=== PATIENT | female | born 1955 | race Caucasian/White ===

== ENCOUNTER 2020-01-19 11:24 | Emergency (ER) | payer MEDICARE, OTHER, SELFPAY ==
[2020-01-19 11:38] VITALS: BP 137/75; PULSE 60; RESP 20; TEMP 36.3; O2SAT 100
--- NOTE | 2020-01-19 12:01 | ED.SKABFB ---
HPI - Skin/Abscess/Foreign Bdy General Chief complaint: Skin/Abscess/Foreign Body Stated complaint: itchy rash Time Seen by Provider: 01/19/20 12:01 Source: patient and RN notes reviewed Mode of arrival: ambulatory Limitations: no limitations History of Present Illness HPI narrative: 64 year old female who presents to express care with rash to bilateral forearms, right side of abdomen for several days which is itching and feels like she is now itching all over. Patient states that she has been working in her yard in her [place] and also used oxy-clean to wash house off. Patient has raised circular red rash which is itchy and irritating no drainage noted. Patient states that she has been using anti-itch cream and taking Benadryl for her symptoms. Patient denies any difficulty with her breathing or any difficulty with swallowing. MD complaint: rash Onset (ago): day(s) (several days) Tetanus up to date: unsure Location: chest (right abdomen), LUE and RUE Severity: moderate Severity scale (1-10): 4 Quality: pruritic Pain Consistency: other (itchy and irritating) Relieving factors: topical medication and other (Benadryl) Exacerbating factors: none Context: other (working in [place] and used oxy-clean on house) Associated symptoms: itching Treatments prior to arrival: Benadryl and other (Benadryl and anti itch ointment) Related Data Home Medications Medication Instructions Recorded Confirmed anastrozole 1 mg PO DAILY 01/19/20 01/19/20 calcium carbonate-vitamin D2 1 tablet PO DAILY 01/19/20 01/19/20 [Calcium + Vitamin D] escitalopram oxalate 20 mg PO DAILY 01/19/20 01/19/20 esomeprazole magnesium [Nexium] 40 mg PO DAILY 01/19/20 01/19/20 Allergies Allergy/AdvReac Type Severity Reaction Status Date / Time phenazopyridine AdvReac Dizziness Verified 01/19/20 11:53 [From Pyridium] Review of Systems Review of Systems: Narrative: CONSTITUTIONAL: Denies fever, chills, or sweats. EYES: Denies visual changes, redness, or discharge. ENT: Denies rhinorrhea, congestion, sore throat, or otalgia. CARDIOVASCULAR: Denies chest pain, palpitations, or edema. RESPIRATORY: Denies cough or dyspnea. GASTROINTESTINAL: Denies abdominal pain, nausea, vomiting, or diarrhea. GENITOURINARY: Denies dysuria or hematuria. SKIN: Positive for red raised circular rash and itching. MUSCULOSKELETAL: Denies back pain, joint pain, or myalgia. NEUROLOGIC: Denies headache, numbness, or weakness. PSYCHIATRIC: Positive history of anxiety or depression. All systems reviewed & are unremarkable except as noted in HPI and below PMFSH Past Medical History Medical History (Updated 01/22/20 @ 08:23 by Celia Ashby NP) Anxiety Breast cancer GERD (gastroesophageal reflux disease) Surgical History Surgical History (Updated 01/22/20 @ 08:19 by Celia Ashby NP) Hx of left mastectomy Social History Social History (Updated 01/22/20 @ 08:21 by Celia Ashby NP) Smoking status: Never smoker Alcohol intake: unknown Substance use: never Living arrangements: with family Occupation/Education: retired Gender identity (if verbalized by the patient): Female Comments At time of signature, agree with nursing past medical, surgical, social history. There is no relevant family history pertinent to the presenting complaint Exam Narrative: Exam Narrative: GENERAL: Well-appearing, well-nourished, and in no acute distress. HEAD: Normocephalic, atraumatic. EYES: PERRLA and EOMI. ENT: Nares clear, no rhinorrhea or epistaxis. Mucous membranes moist.TM's normal no swelling or redness to throat or tonsil enlargement. NECK: Supple.no lymphadenopathy CHEST: Clear to auscultation. No respiratory distress.SAO2 100% on room air HEART: Regular rate and rhythm. No murmur heard. Normal peripheral pulses. ABDOMEN: Soft, nontender, nondistended, normal active bowel sounds. EXTREMITIES: Normal range of motion. No edema. SKIN: Warm, dry,red raised circular ra
== END 2020-01-19 12:20 | disposition home or self-care (01) ==
PROVIDERS: Emergency Provider Registered Nurse
DX: L23.9 Allergic contact dermatitis, unspecified cause (principal); F41.9 Anxiety disorder, unspecified; K21.9 Gastro-esophageal reflux disease without esophagitis; Z85.3 Personal history of malignant neoplasm of breast; Z90.12 Acquired absence of left breast and nipple
CPT/HCPCS: 99213; G0463